=== PATIENT | female | born 1955 | race Caucasian/White ===

== ENCOUNTER 2017-06-05 09:44 | Day surgery (SDC) | payer OTHER ==
[~2017-06-05] VITALS: Ht 160 cm; Wt 63.1 kg
[~2017-06-05 09:44] MED LIST: AMOCLA875 PO; BUDE32NIS; Fish Oil300 MG PO; HYDR1TAB94 PO; LEVSOD50; MULVITMIND PO
== END 2017-06-05 11:55 | disposition home or self-care (01) ==
LOC: ORSCSDS 09:44
PROVIDERS: Internal Medicine Gastroenterology
PROC: 0DBM8ZX Excision of Descending Colon, Via Natural or Artificial Opening Endoscopic, Diagnostic (ICD-10-PCS; principal; 2017-06-05 11:00)
DX: Z12.11 Encounter for screening for malignant neoplasm of colon (principal); K63.5 Polyp of colon; B19.20 Unspecified viral hepatitis C without hepatic coma; E03.9 Hypothyroidism, unspecified; Z79.82 Long term (current) use of aspirin; Z79.899 Other long term (current) drug therapy
CPT/HCPCS: 88305; J7120

== ENCOUNTER → 2021-01-08 | Outpatient (CLI) | payer OTHER | END | disposition home or self-care (01) | LOC: LAB 14:02 → LAB SHORT 14:02 | DX: M70.42 Prepatellar bursitis, left knee (principal) | CPT/HCPCS: 84550 ==

== ENCOUNTER 2023-08-25 06:52 | Day surgery (SDC) | payer OTHER ==
[2023-08-25] VITALS (13 sets, daily range): BP systolic 98–133; BP diastolic 66–84
[~2023-08-25] VITALS: Ht 160 cm; Wt 65.1 kg
[~2023-08-25 06:52] MED LIST changes: +Calcium Carbon500 MG PO; +ERGO400 PO; +Flonase 0.05% N16 GM; +Lactated Ringer's 1,000 ML IV SCH; +Vitamin B-12100 MCG PO
[2023-08-25] MEDS ORDERED: propofoL 20 ML IV ONE (08:08)
--- NOTE | 2023-08-25 08:34 | NUR ---
08/25/23 0834 David Ness HISTORY, CHART, MEDICATIONS AND ALLERGIES REVIEWED BEFORE START OF PROCEDURE. PATIENT CONFIRMS NPO STATUS AND AGREES WITH SCHEDULED PROCEDURE. 3-LEAD EKG REVIEWED WITH PHYSICIAN PRIOR TO START OF PROCEDURE. MONITOR INTACT WITH CONTINUOUS PULSE OXIMETRY,CAPNOGRAPHY, 3-LEAD EKG, INTERMITTENT BP. SUPPLEMENTAL O2 TO BE TITRATED THROUGHOUT PROCEDURE TO MAINTAIN O2 SATURATION ABOVE 90%. PATIENT DETERMINED TO BE ASA APPROPRIATE FOR PROPOFOL SEDATION PRIOR TO START OF PROCEDURE BY
--- NOTE | 2023-08-25 09:09 | NUR ---
Discharge instructions reviewed with patient. Patient verbalizes understanding. Copy given to patient to take home. Patient States Post-Procedure ride home has been arranged. Discharged via wheelchair to private car for ride home.
== END 2023-08-25 09:10 | disposition home or self-care (01) ==
LOC: ORSCMMR 06:52 → ORD 08:00 → ORSCMMR 08:00
PROVIDERS: Internal Medicine Gastroenterology
PROC: 0DBM8ZX Excision of Descending Colon, Via Natural or Artificial Opening Endoscopic, Diagnostic (ICD-10-PCS; principal; 2023-08-25 08:00)
DX: Z12.11 Encounter for screening for malignant neoplasm of colon (principal); Z86.010 Personal history of colon polyps; K63.5 Polyp of colon; E03.9 Hypothyroidism, unspecified
CPT/HCPCS: 88305; J2704; J7120

== ENCOUNTER → 2024-10-24 | Outpatient (CLI) | payer OTHER ==
[~2024-10-24] MED LIST changes: -Lactated Ringer's 1,000 ML IV SCH
== END | disposition home or self-care (01) ==
LOC: LAB SHORT 10:42 → LAB 10:42
DX: M10.9 Gout, unspecified (principal)
CPT/HCPCS: 84550